=== PATIENT | male | born 1985 | race Caucasian/White ===

== ENCOUNTER 2021-05-02 19:27 | Emergency (ER) | payer MEDICAID ==
[~2021-05-02] VITALS: Ht 177.8 cm; Wt 70.4 kg
[~2021-05-02 19:27] MED LIST: LIDOcaine 1% 30ml preserv. free vial ONE
--- NOTE | 2021-05-02 21:35 | NUR ---
LEFT HAND SOAKED IN BETADINE AND NORMAL SALINE FOR 20 MIN. [facility] ER PROVIDER.
--- NOTE | 2021-05-02 22:26 | NUR ---
PT UP TO BR TO VOID. STEADY GAIT. JUST ATE A CANDY BAR. STILL AWAITING ER PROVIDER.
[2021-05-02] MEDS ORDERED: ketorolac tromethamine 15mg/ml inj. IM ONE (23:00)
[2021-05-02] MEDS ORDERED: TETanus/Pertussis (Acell)/Diphther VAC/PF (Tdap-Adult) 0.5ml syringe IMVAC ONE (23:00)
[2021-05-02] MEDS ORDERED: LORazepam 0.5 MG tablet PO PRN (23:00)
[2021-05-02] MEDS ORDERED: amox tr/potassium clavulanate 875/125mg TAB PO ONE (23:15)
--- NOTE | 2021-05-02 23:24 | NUR ---
Given tetnus, toradol and ativan 0.5 mg po. Pt reports high anxiety at this time. 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 Hand irrigated with 1 liter of ns by fisher [employer] net. pt to have hand xray prior to suturing
--- NOTE | 2021-05-02 23:38 | NUR ---
YVETTE LEVINE AT BEDSIDE TO BEGIN WENCESLAOG.
--- NOTE | 2021-05-02 23:48 | NUR ---
Animal Bite sheet filled out by myself with cooperative from Pt.
[2021-05-02] MEDS ORDERED: AMOX-117 PO (23:59)
[2021-05-03 00:01] VITALS: BP 17/62
== END 2021-05-03 00:12 | disposition home or self-care (01) ==
LOC: ER 19:29
DX: S61.412A Laceration without foreign body of left hand, initial encounter (principal); F17.200 Nicotine dependence, unspecified, uncomplicated; Z86.19 Personal history of other infectious and parasitic diseases; Z79.2 Long term (current) use of antibiotics; Z20.3 Contact with and (suspected) exposure to rabies; W54.0XXA Bitten by dog, initial encounter; Y93.89 Activity, other specified; Y92.89 Other specified places as the place of occurrence of the external cause; Y99.8 Other external cause status
CPT/HCPCS: 12002; 73130; 90471; 90715; 96372; 99284; J1885; J2001

== ENCOUNTER 2021-05-07 03:34 | Emergency (ER) | payer MEDICAID ==
[~2021-05-07] VITALS: Ht 177.8 cm; Wt 68.2 kg
[~2021-05-07 03:34] MED LIST changes: +AMOX-117 PO; -LIDOcaine 1% 30ml preserv. free vial ONE
[2021-05-07 03:52] VITALS: BP 107/72
[2021-05-07] MEDS ORDERED: SULF1TAB45 PO (09:24)
[2021-05-07] MEDS ORDERED: ketorolac tromethamine 15mg/ml inj. IM ONE (09:25)
[2021-05-07] MEDS ORDERED: sulfamethoxazole/trimethoprim DS (800/160mg) tablet PO ONE (09:30)
== END 2021-05-07 09:44 | disposition home or self-care (01) ==
LOC: ER 03:34
DX: S61.412D Laceration without foreign body of left hand, subsequent encounter (principal); Z59.0 Homelessness; Z56.0 Unemployment, unspecified; Z86.19 Personal history of other infectious and parasitic diseases; W54.0XXD Bitten by dog, subsequent encounter
CPT/HCPCS: 96372; 99283; J1885

== ENCOUNTER 2021-05-08 15:07 | Emergency (ER) | payer MEDICAID ==
[~2021-05-08] VITALS: Ht 172.7 cm; Wt 72.7 kg
[~2021-05-08 15:07] MED LIST changes: +SULF1TAB45 PO
[2021-05-08 15:22] VITALS: BP 134/68
== END 2021-05-08 17:23 | disposition left against medical advice (07) ==
LOC: ER 15:08
DX: Z76.0 Encounter for issue of repeat prescription (principal); Z53.21 Procedure and treatment not carried out due to patient leaving prior to being seen by health care provider

== ENCOUNTER 2021-08-06 02:19 | Emergency (ER) | payer MEDICAID ==
[~2021-08-06] VITALS: Ht 177.8 cm; Wt 65.9 kg
[2021-08-06 02:26] VITALS: BP 124/76
== END 2021-08-06 03:35 | disposition home or self-care (01) ==
LOC: ER 02:19
DX: R07.9 Chest pain, unspecified (principal); R06.02 Shortness of breath; Z59.00 Homelessness unspecified; Z86.19 Personal history of other infectious and parasitic diseases
CPT/HCPCS: 99283